=== PATIENT | female | born 1980 | race Caucasian/White ===

== ENCOUNTER 2023-10-26 13:58 | Outpatient (CLI) | payer OTHER ==
[2023-10-26] MEDS ORDERED: iohexoL-300 100 ML VIAL ONE (14:31)
--- NOTE | 2023-10-26 21:14 | CT Report ---
PROCEDURE: Chest W INDICATIONS: PULMONARY NODULE CONTRAST: 100ml omni 300 TECHNIQUE: After the administration of intravenous contrast, a CT scan of the chest was performed. Images were recorded and evaluated at appropriate window settings. Reformats: axial MIP of the chest, coronal and sagittal. For radiation dose reduction, the following was used: automated exposure control, adjustme nt of mA and/or kV according to patient size. COMPARISON: None. FINDINGS: Image quality: Diagnostic. Chest wall and lower neck: No thyroid nodule which requires sonographic follow up. No breast mass. No axillary or supraclavicular adenopathy by size. Lungs and pleura: No consolidation. No pleural effusions. No pneumothorax. There is a 2 mm nodule in the right upper lobe (4/56, MIP image 82). Mediastinum: Heart size is normal. No pericardial effusion. No large vessel abnormality. No mediastin al adenopathy by size criteria. Bones: No aggressive osseous abnormality. Upper Abdomen: Hepatic steatosis. IMPRESSION: Right upper lobe 2 mm nodule. Patient is high risk for lung malignancy, consider follow-up CT chest i n 12 months to demonstrate stability per Fleischner Society guidelines. Hepatic steatosis. Reviewed by: Sera Martinez MD, PhD on 10/26/2023 8:13 PM [place] Approved by: Sera Martinez MD, PhD on 10/26/2023 8:13 PM [place] Station ID: [id number]
== END 2023-10-26 13:59 | disposition home or self-care (01) ==
LOC: DI 13:58
DX: R91.1 Solitary pulmonary nodule (principal); R06.00 Dyspnea, unspecified
CPT/HCPCS: 71260; Q9967